=== PATIENT | female | born 1975 | race Caucasian/White ===

== ENCOUNTER → 2020-11-20 14:17 | Outpatient (CLI) | payer OTHER, SELFPAY ==
[2020-11-20 16:08] LABS: HIV - WCH Non-Reactive (Nonreactive); Hepatitis B Surface Antibody Non-Reactive; Hepatitis B Surface Antigen Non-Reactive (Nonreactive); Hepatitis C Antibody Non-Reactive (Nonreactive); Syphilis Antibodies Non-reactive
[2020-11-23 07:07] LABS: Chlamydia By Nucleic Acid AMP Negative (Negative)
[2020-11-23 08:44] LABS: Gonococcus By Nucleic Acid AMP Negative (Negative)
[2020-11-23 15:43] LABS: HPV APTIMA, High Risk Negative (Negative)
== END ==
PROVIDERS: Visit Provider Student in an Organized Health Care Education/Training Program
DX: Z12.4 Encounter for screening for malignant neoplasm of cervix (principal); Z11.3 Encounter for screening for infections with a predominantly sexual mode of transmission
CPT/HCPCS: 36415; 86703; 86706; 86803; 87340; 87491; 87591; 87624; 88175; G0145

== ENCOUNTER → 2020-11-29 07:02 | Outpatient (CLI) | payer OTHER, SELFPAY ==
--- NOTE | 2020-11-29 07:04 | BI_ITS ---
MAMMOGRAPHY - BILATERAL SCREENING REASON FOR EXAM: Female, 45 years old. Routine annual screening examination. PERTINENT HISTORY: Non-contributory. TECHNIQUE: Digital bilateral breast daxa (3D mammographic acquisition) in the CC and MLO projections. 2-D mediolateral oblique (MLO) and craniocaudad (CC) views of both breasts were obtained. CAD: Full Field Digital Mammography with Computer Added Detection was performed. COMPARISON: None. Baseline examination. FINDINGS: Breast Composition: The breasts are heterogeneously dense, which may obscure small masses. There are no dominant masses or suspicious calcifications. Benign-appearing bilateral axillary lymph nodes. No other significant abnormalities are identified. BI/SCRN MAMM (CAD)W/DAXA BILAT IMPRESSION: Negative screening mammogram. Yearly followup mammogram recommended. (A) ASSESSMENT CATEGORY: BIRADS Category 2: Benign. A letter regarding these results will be sent to the patient by the facility within 30 days. Approximately 10% of breast cancers are not detected by mammography. A normal mammogram should not delay biopsy of a clinically suspicious abnormality. [id number] Electronically Signed: Ariel Tinsley MD at 8:35 EST , Service support ,
== END ==
PROVIDERS: Referring Provider Student in an Organized Health Care Education/Training Program; Visit Provider Student in an Organized Health Care Education/Training Program
DX: Z12.31 Encounter for screening mammogram for malignant neoplasm of breast (principal)
CPT/HCPCS: 77063; 77067

== ENCOUNTER 2021-01-11 05:55 | Day surgery (SDC) | payer OTHER, SELFPAY ==
[2021-01-08 09:33] LABS: Hematocrit 39.2 % (37-47); Hemoglobin 12.3 g/dL (12.0-15.0); Mean Corp Hgb Conc 31.4 g/dL (32-36); Mean Corpuscular Hgb 28.6 pg (27.0-32.0); Mean Corpuscular Volume 91.2 fL (81-99); Mean Platelet Vol. 11.3 fl (6.2-12.0); Platelet Count 239 K/mm3 (150-450); RBC Distribution Width CV 15.3 % (11.6-14.6); RBC Distribution Width SD 51.2 fl (35.1-43.9); White Blood Count 6.3 K/mm3 (4.4-11.0)
--- NOTE | 2021-01-08 09:37 | HP.PCM_ITS ---
History and Physical Date of Admission: 01/11/21 HISTORY OF PRESENT ILLNESS: On 01/08/2021, December Joseph, a 45 year old female 3 0 0 0 3, presented for hysteroscopy, dilation and curettage, endometrial ablation for menorrhagia. Patient has history of heavy menses with frequent tampon/pad changes. Interfering with daily life. MEDICAL HISTORY: Denies ALLERGIES: NKA MEDICATIONS HISTORY: None SURGICAL HISTORY: 1. 06/19/2007 Inna Christiansen M.D. Prior 2. Cholecystectomy -2007 3. 04/02/2002 Inna Christiansen M.D. FTP MENSTRUAL HISTORY: LMP Known?- DefiniteAmount/Duration - 5-6 DAYS, Regularity - Regular, Frequency - 28-42d days, LMP - 01/01/21, Age Onset Menarche - 12 PAST PREGNANCIES: Total Pregnancies - 3; Full Term Pregnancies - 3; Premature - 0; Abortions, Induced - 0; Abortions, Spontaneous - 0; Ectopics - 0; Multiple Births - 0; Living Children - 3 FAMILY HISTORY (OLD): Family history of Thyroid disease and DM II. Maternal history of Heart Disease SOCIAL HISTORY: Alcohol Use - occasionally Smoking - denies smoking Drugs - denies REVIEW OF SYSTEMS: GENERAL - Denies fever, or chills SKIN - Denies skin changes EYES - Denies visual changes EARS - Denies difficulty hearing NOSE - Denies nasal congestion or bleeding MOUTH - Denies sore throat or difficulty swallowing NECK - Denies pain or swelling RESPIRATORY - Denies shortness of breath or wheezing CARDIOVASCULAR - Denies palpitations or chest pain GASTROINTESTINAL - Denies nausea, vomiting, diarrhea, constipation GENITOURINARY - Denies dysuria, frequency of urination, incontinence of urine MUSCULOSKELETAL - Denies joint or muscle pain NEUROLOGICAL - Denies localized numbness or weakness PSYCHIATRIC - Denies depression or anxiety ENDOCRINE - Denies heat or cold intolerance, weight loss or gain HEMATO-IMMUNOLOGIC - Denies excesive bleeding with cuts BP- 116/80 Sitting, Right arm, regular cuff Weight- 183.00 lbs Height- 59.25 inch BMI:36.73 CONSTITUTIONAL - NAD, well nourished, and well developed SKIN - No rash, lesions, or ulcers HEENT - Normocephalic, PERRLA, EOMI NECK - No nodes, no nuchal rigidity and thyroid normal size and texture LYMPH NODES - Palpation of lymph nodes in neck and groins within normal limits LUNGS - CTA x2 without wheezes, crackles or rales CARDIAC - Regular rate and rhythm without rubs, murmurs, or gallops BREAST - No dominant masses, no tenderness, no axillary adenopathy, no nipple discharge, no skin changes ABDOMEN - Without hepatosplenomegaly, distention, masses, rebound, or guarding; normal bowel sounds; no hernias EXTREMITIES - No edema or calf tenderness NEUROLOGICAL - Cranial nerves II-XII grossly intact PSYCHIATRIC - A and O to time, place, person, mood and affect DETAILED PELVIC EXAM External Genital Vagina - non-tender without lesions Urethra/Urethral Meatus - non-tender Bladder - non-tender Vagina - vaginal gray are pink and moist without loss of rugae and no evidence of atropy Cervix - without cervical motion tenderness and has normal size and features wi thout evident lesions Uterus - 5-6 cm in size, mobile and nontender Adnexa - clear without massess or tenderness ASSESSMENT: PLAN BY DIAGNOSIS: 1. Menorrhagia Heavy irregular menses. Changing 1 tampon every hour. Plans for hysteroscopy, Dilation and curettage, endometrial ablation. R/B/A discussed. Risks include, but are not limited to: risk of bleeding to the point of transfusion, infectoin, injury to surrounding tissue including bowel/bladder/uterine perforation, ICU admission, VTE. All questions answered, consents signed.
[2021-01-11] VITALS (9 sets, daily range): BP systolic 83–131; BP diastolic 47–88; PULSE 66–78; RESP 16–18; TEMP 36.1–36.2; O2SAT 95–100; BMI 36.8
--- NOTE | 2021-01-11 | EMB_PTH ---
PATIENT: LATRELLDecember LOC: [facility] [place] U#:[id number] AGE/SX: 45/F ROOM: RE01/11/[address]: Dr. Veronica Garza, : 1975 BED: DIS: 01/11/2021 SPEC #: [id number] RECD: 01/11/21 11:10 STATUS: ALBERT KAMALA #: [id number] NILSA: 01/11/21 00:[address]: Veronica Garza DEPT: SURGICAL PATHOLOGY RECD BY: Santiago Pantoja Tissues: Endometrium, NOS Procedures: Surgery Specimen Level IV HEADER OPERATION: Hysteroscopy, D & C Estelle PRE-OP DIAGNOSIS: Menorrhagia TISSUE SUBMITTED: Endometrial curettings MICROSCOPIC DIAGNOSIS Endometrial curettings: Proliferative endometrium. Fragments of benign endocervical mucosa. Superficial fragments of myometrium. YEIMY:xavi 01/12/2021 MICROSCOPIC DESCRIPTION Slides are reviewed. GROSS DESCRIPTION Received in fixative is one container labeled with the patient's name and designated endometrial curettings. The specimen consists of multiple fragments of pink hemorrhagic soft tissue that in aggregate measure 5 x 3 x 0.3 cm. The specimen is totally submitted in two cassettes. / SJ:xavi 01/11/21 TC:4 CPT: 78753
[2021-01-11] MEDS: Lactated Ringers 1,000 ML 100 ML IV (06:37)
--- NOTE | 2021-01-11 07:37 | PCM.OPRPT ---
Report of Operation Date of Procedure: 01/11/21 Pre-Operative Diagnosis: Menorrhagia Post-Operative Diagnosis: Menorrhagia Surgery/Procedure Performed:: Hysteroscopy, Dilation and Curettage. Endometrial ablation. Description of Surgical Findings:: Normal-appearing external genitalia. Normal-appearing endometrial cavity, no fibroids or polyps. Bilateral tubal ostia noted. Type of Anesthesia:: MAC Anesthesiologist: Charles Guardado Specimen's removed: Endometrial curettings Estimated Blood Loss (mL): 5 cc Fluids Replaced: 500 cc Description of Procedure: Patient taken to the operating room, MAC anesthesia induced. Patient placed in the dorsal lithotomy position prepped and draped in a usual sterile fashion. Bladder drained 25 cc. Alexis retractor placed in posterior vagina and anterior lip of cervix grasped with a single-tooth tenaculum. Cervix sequentially dilated. Uterus sounded to 10 cm. Hysteroscope placed through cervical canal and visualization of the entire endometrial cavity completed with above findings noted. Hysteroscope removed. Cervical length measured at 4 cm. Curettage completed a 360 degree manner. Estelle device open. Estelle placed, passed safety check. Device deployed. Ablation completed. Hysteroscope replaced noting ablation of cavity. Single-tooth tenaculum removed, hemostatic. Alexis retractor removed from vagina. At the end of the procedure all needle, lap, sponge counts correct x3. - Complications None - Admit VTE Documentation VTE Mechan Device Prophylaxis: SCD's
--- NOTE | 2021-01-11 07:38 | DCINST_ITS ---
Discharge Activity: Return to Normal Activity, May Drive, May Shower May resume sexual activity in: 3 weeks Weight Bearing Status: Weight bearing as tolerated Call your doctor if you observe: Fever of 101 or Higher, Inability to urinate, Using more than one pad per hour, Shortness of breath, Dizziness, Chest pain Cleanse incision/area with: Soap & Water Allergies/Adverse Reactions: Allergies No Known Allergies Allergy (Verified 01/11/21 06:20) Medications to take at Discharge Ferrous Gluconate [Iron] 240 mg PO DAILY 01/04/21 Primary Care Physician: SANFORD LOVE [Other] Test Results: Test results from this visit will be discussed in further detail at your follow- up appointment, if applicable. Please Follow Up With: Veronica Garza DO When: 2 week post operative visit
[2021-01-11] MEDS: Lubricating Jelly 60 GM Tube 30 GM TOPICAL (07:42)
== END 2021-01-11 09:45 | disposition home or self-care (01) ==
LOC: SDC 05:56 → AC 05:56
PROVIDERS: Referring Provider Student in an Organized Health Care Education/Training Program; Visit Provider Student in an Organized Health Care Education/Training Program
PROC: 0U5B8ZZ Destruction of Endometrium, Via Natural or Artificial Opening Endoscopic (ICD-10-PCS; CPT 58558; principal; 2021-01-11 07:15)
DX: N92.0 Excessive and frequent menstruation with regular cycle (principal); D64.9 Anemia, unspecified; Z30.430 Encounter for insertion of intrauterine contraceptive device; Z20.822 Contact with and (suspected) exposure to COVID-19
CPT/HCPCS: 00952; 58300; 58563; 36415; 85027; 86850; 86900; 86901; 87426; 88305; C9803; J7120; J2405